=== PATIENT | male | born 2000 | race Caucasian/White ===

== ENCOUNTER 2022-01-23 04:09 | Emergency (ER) | payer MEDICAID, OTHER ==
[2022-01-23 04:33] VITALS: BP 128/86
[2022-01-23 04:40] VITALS: PULSE 66
[2022-01-23] MEDS ORDERED: Ketorolac 30 MG/ML SDV IM ONE (04:43)
== END 2022-01-23 05:38 | disposition home or self-care (01) ==
LOC: JP.ED 04:09
DX: M25.511 Pain in right shoulder (principal); Z86.16 Personal history of COVID-19
CPT/HCPCS: 73030; 96372; 99283; J1885

== ENCOUNTER 2024-08-08 14:27 | Emergency (ER) | payer MEDICAID, OTHER ==
[2024-08-08] MEDS: Alum Hydrox/Mag Hydrox/Simeth 15 ML, Lidocaine 2% 15 ML PO ONE ×2 (16:25→16:29)
[2024-08-08 16:40] VITALS: BP 109/65; PULSE 94
[2024-08-08] MEDS ORDERED: Sodium Chloride 0.9% 10 ML Syringe FLUSH PRN (16:57)
[2024-08-08] MEDS: Iopamidol 612 MG/ML 100 ML Bottle IV SCH (17:32)
[2024-08-08] MEDS: Sodium Chloride 0.9% 80 ML IV SCH (17:32)
[2024-08-08 17:35] LABS: LYME AB IgG Negative (Negative); LYME AB IgM Negative (Negative)
== END 2024-08-08 19:04 | disposition home or self-care (01) ==
LOC: JP.ED 14:27
DX: R10.13 Epigastric pain (principal); R07.89 Other chest pain; Z86.16 Personal history of COVID-19; Z90.49 Acquired absence of other specified parts of digestive tract
CPT/HCPCS: 36415; 71260; 74177; 84484; 86618; 87635; 93005; 99285; A9270; Q9967; U0002